=== PATIENT | male | born 1990 | race Caucasian/White ===

== ENCOUNTER 2018-10-05 18:59 | Emergency (ER) | payer SELFPAY ==
[~2018-10-05] VITALS: Ht 175.3 cm; Wt 89.0 kg
[2018-10-05 19:02] VITALS: BP 171/120
== END 2018-10-05 22:31 | disposition left against medical advice (07) ==
LOC: ER 18:59
DX: R10.9 Unspecified abdominal pain (principal); Z53.21 Procedure and treatment not carried out due to patient leaving prior to being seen by health care provider